=== PATIENT | female | born 1985 | race Asian ===

== ENCOUNTER 2017-02-03 20:26 | Day surgery (SDC) | payer MEDICAID, OTHER ==
[~2017-02-03] VITALS: Ht 152.4 cm; Wt 53.4 kg
--- NOTE | 2017-02-03 22:49 | ERD ---
ER Documentation Chief Complaint Date/Time DATE: 02/03/17 TIME: 22:47 Chief Complaint VAG BLEEDING/ABD CRAMPING SINCE 4:30PM 7 WEEKS HPI 31-year-old female presents here in emergency department for complaints of vaginal bleeding started today, describes the bleeding as spotting, complaints of pelvic pain cramping pain, 4/10 scale, accompanying the vaginal spotting. Patient is 1 para 0 0. Approximately 7 weeks . LMP . Patient denies any hematuria or dysuria. Patient denies any flank pain. Patient denies any fever or chills. Patient denies any nausea vomiting. ROS All systems reviewed and are negative except as per history of present illness. Medications Home Meds Reported Medications [none] Unknown Strength No Conflict Check 02/03/17 Allergies Allergies: Coded Allergies: No Known Allergy (Unverified , 02/03/17) PMhx/Soc Medical and Surgical Hx: pt denies Medical Hx, pt denies Surgical Hx Hx Alcohol Use: No Hx Substance Use: No Hx Tobacco Use: No Smoking Status: Never smoker FmHx Family History: No coronary disease, No diabetes, No other Physical Exam Vitals Vital Signs Date Time Temp Pulse Resp B/P Pulse Ox O2 Delivery O2 Flow Rate FiO2 02/04/17 01:11 71 28 129/93 100 Room Air 02/03/17 21:09 98.6 71 20 132/78 99 Physical Exam GENERAL: The patient is well developed and appropriate for usual state of health, in no apparent distress. CHEST: Clear to auscultation bilaterally. There are no rales, wheezes or rhonchi. HEART: Regular rate and rhythm. No murmurs, clicks, rubs or gallops. No S3 or S4. ABDOMEN: Soft, nontender and nondistended. Good bowel sounds. No rebound or guarding. No gross peritonitis. No gross organomegaly or masses. No Maldonado sign or McBurney point tenderness. BACK: No midline or flank tenderness. EXTREMITIES: Equal pulses bilaterally. There is no peripheral clubbing, cyanosis or edema. No focal swelling or erythema. Full range of motion. Grossly neurovascularly intact. NEURO: Alert and oriented. Cranial nerves 2-12 intact. Motor strength in all 4 extremities with 5/5 strength. Sensation grossly intact. Normal speech and gait. SKIN: There is no apparent rash or petechia. The skin is warm and dry. HEMATOLOGIC AND LYMPHATIC: There is no evidence of excessive bruising or lymphedema. No gross cervical, axillary, or inguinal lymphadenopathy. Vaginal: Small amount of blood in the vaginal vault, cervical os closed. No cervical motion tenderness or adnexal tenderness noted. Result Diagram: 02/03/17 1020 Results 24 hrs Laboratory Tests Test 02/03/17 23:20 02/03/17 23:27 Urine Color LT. YELLOW Urine Clarity CLEAR Urine pH 5.5 Urine Specific [place] 1.015 Urine Ketones NEGATIVE Urine Nitrite NEGATIVE Urine Bilirubin NEGATIVE Urine Urobilinogen 0.2 E.U./dL Urine Leukocyte Esterase TRACE Urine Microscopic RBC 25-50/HPF Urine Microscopic WBC 2-5/HPF Urine Squamous Epithelial Cells FEW Urine Bacteria FEW Urine Hemoglobin 3+ Urine Glucose NEGATIVE% Urine Total Protein NEGATIVE White Blood Count 11.110^3/ul Red Blood Count 4.0410^6/ul Hemoglobin 12.2g/dl Hematocrit 36.7% Mean Corpuscular Volume 90.8fl Mean Corpuscular Hemoglobin 30.2pg Mean Corpuscular Hemoglobin Concent 33.2g/dl Red Cell Distribution Width 12.3% Platelet Count 97644^3/UL Mean Platelet Volume 9.8fl Neutrophils % 74.8% Lymphocytes % 18.9% Monocytes % 4.6% Eosinophils % 0.8% Basophils % 0.5% Nucleated Red Blood Cells % 0.0/100WBC Neutrophils # 8.310^3/ul Lymphocytes # 2.110^3/ul Monocytes # 0.510^3/ul Eosinophils # 0.110^3/ul Basophils # 0.110^3/ul Nucleated Red Blood Cells # 0.010^3/ul Beta HCG, Quantitative 2025.8mIU/ml Current Medications Medications (Trade) Dose Ordered Sig/Cathleen Route PRN Reason Start Time Stop Time Status Last Admin Dose Admin Ketorolac Tromethamine 30 mg 30 mg ONCE STAT IV 02/04/17 00:37 02/04/17 00:58 DC 02/04/17 01:02 Sodium Chloride (NS) 1,000 ml @ 1,000 mls/hr Q1H ONCE IV 02/04/17 01:00 02/04/17 01:59 DC 02/04/17 01:03 Ondansetron HCl (Zofran Inj) 4 mg ONCE STAT IV 02/04/17 01:10 02/04/17 01:11 DC Ondansetron HCl (Zofran Inj) 4 mg Q6 PRN IV NAUSEA AND/OR VOMITING 02/04/17 03:00 Morphine Sulfate (morphine) 2 mg Q4 PRN IV PAIN LEVEL 7-10 02/04/17 03:00 PROCEDURE: US OB Pelvis. CLINICAL INDICATION: Pain, vaginal bleeding, . TECHNIQUE: Multiple sonographic images of the pelvis were obtained utilizing a transabdominal and endovaginal technique. The images were reviewed on a PACS workstation. COMPARISON: None. FINDINGS: The uterus is visualized and measures 8.5 x 4.2 x 5.2 cm. The endometrial echo complex is normal and measures 13 mm. No intrauterine is identified. The right ovary has a normal echotexture and measures 2.7 x 1.5 x 2.1 cm. Blood flow is demonstrated to the right ovary. The left ovary is not visualized. No adnexal masses are noted. There is a small volume of free pelvic fluid. IMPRESSION: 1. No evidence of intrauterine . If there is clinical concern for ectopic , close follow-up with serial Beta HCG and possible repeat pelvic ultrasound is recommended. 2. Normal appearance of the right ovary. The left ovary is not visualized. 3. Small volume free pelvic fluid, nonspecific. RPTAT: HTAR .Robert Taylor MD, Date Time Electronically viewed and signed by .Robert Taylor MD, on 02/04/2017 00:00 .R/ CC: VELMA ALMAGUER NP Upon reevaluation of patient at 45, patient complaining of severe pelvic pain , 8/10 scale, accompanied with worsening vaginal bleeding, I spoke with OB laborist, Dr Cabrera, will come down and evaluate patient, presented patient's results, JAMIN, doesnt show IUP, left ovary not visualized, beta HCG at 2024. She recommended to medicate patient with Toradol 30 mg IV. Procedures/MDM Medical Decision Making: Patients vaginal bleeding is most likely consistent of possible threatened . Patient does not show any evidence of hypovolemic shock. Patients hemoglobin and hematocrit is stable. Since patient' s left ovary is not visualized and patient is an pain, patient will be observed in the hospital, will be admitted under the labor rest, I spoke with OB Laborist , Dr. Brar, with admitted the patient for observation. Patient is stable at this time. Departure Diagnosis: Primary Impression: Vaginal bleeding Additional Impression: Pelvic pain Condition: Fair VELMA ALMAGUER NP February 03, 2017 22:48
[2017-02-03 23:32] LABS: ADD UMIC YES; URINE BILIRUBIN (Dip) NEGATIVE (NEGATIVE); URINE BLOOD (Dip) 3+ (NEGATIVE); URINE COLOR LT. YELLOW (YELLOW); URINE GLUCOSE (Dip) NEGATIVE (NEGATIVE); URINE KETONES (Dip) NEGATIVE (NEGATIVE); URINE LEUKOCYTE ESTERASE (Dip) TRACE (NEGATIVE); URINE NITRITE (Dip) NEGATIVE (NEGATIVE); URINE TOTAL PROTEIN (Dip) NEGATIVE (NEGATIVE); URINE UROBILINOGEN (Dip) 0.2 E.U./dL (0.1-1.0)
[2017-02-03 23:50] LABS: ADD SCAN DIFF NO
[2017-02-03 23:51] LABS: BASOPHIL # 0.1 10^3/ul (0.0-0.1); BASOPHILS % 0.5 % (0.0-2.0); EOSINOPHILS # 0.1 10^3/ul (0.0-0.5); EOSINOPHILS % 0.8 % (0.0-7.0); HEMATOCRIT 36.7 % (37.0-47.0); HEMOGLOBIN 12.2 g/dl (12.0-16.0); LYMPHOCYTES # 2.1 10^3/ul (0.8-2.9); LYMPHOCYTES % 18.9 % (15.0-51.0); MEAN CORPUSCULAR HEMOGLOBIN 30.2 pg (29.0-33.0); MEAN CORPUSCULAR HGB CONC 33.2 g/dl (32.0-37.0); MEAN CORPUSCULAR VOLUME 90.8 fl (82.0-101.0); MEAN PLATELET VOLUME 9.8 fl (7.4-10.4); MONOCYTE # 0.5 10^3/ul (0.3-0.9); MONOCYTES % 4.6 % (0.0-11.0); NEUTROPHIL # 8.3 10^3/ul (1.6-7.5); NEUTROPHILS % 74.8 % (39.0-77.0); PLATELET COUNT 347 10^3/UL (140-415); RED BLOOD COUNT 4.04 10^6/ul (4.20-5.40); RED CELL DISTRIBUTION WIDTH 12.3 % (11.5-14.5); WHITE BLOOD COUNT 11.1 10^3/ul (4.8-10.8)
[2017-02-03 23:53] LABS: BACTERIA,URINE FEW; SQUAMOUS EPITHELIAL CELL,UR FEW; URINE RBCS 25-50 /HPF (0)
[2017-02-04] VITALS (16 sets, daily range): BP systolic 120–140; BP diastolic 66–87; PULSE 68–80; RESP 16–22; TEMP 98.2; Ht 152.4 cm; Wt 53.4 kg
--- NOTE | 2017-02-04 | RADRPT ---
PROCEDURE: US OB Pelvis. CLINICAL INDICATION: Pain, vaginal bleeding, . TECHNIQUE: Multiple sonographic images of the pelvis were obtained utilizing a transabdominal and endovaginal technique. The images were reviewed on a PACS workstation. COMPARISON: None. FINDINGS: The uterus is visualized and measures 8.5 x 4.2 x 5.2 cm. The endometrial echo complex is normal and measures 13 mm. No intrauterine is identified. The right ovary has a normal echotexture and measures 2.7 x 1.5 x 2.1 cm. Blood flow is demonstrated to the right ovary. The left ovary is not visualized. No adnexal masses are noted. There is a smal l volume of free pelvic fluid. IMPRESSION: 1. No evidence of intrauterine . If there is clinical concern for ectopic , close follow-up with serial Beta HCG and possible repeat pelvic ultrasound is recommended. 2. Normal appearance of the right ovary. The left ovary is not visualized. 3. Small volume free pelvic fluid, nonspecific. RPTAT: HTAR .Robert Taylor MD, Date Time Electronically viewed and signed by .Robert Taylor MD, on 02/04/2017 00:00 .R/
[2017-02-04] MEDS ORDERED: KETOROLAC 30 MG INJ IV STA (00:37)
[2017-02-04] MEDS ORDERED: SOD CHLORIDE 0.9% 1,000 ML IV ONE (01:00)
[2017-02-04] MEDS ORDERED: ONDANSETRON 4 MG INJ IV STA (01:10)
--- NOTE | 2017-02-04 02:36 | HP ---
Date/Time of Note Date/Time of Note DATE: 02/04/17 TIME: 02:23 Assessment/Plan VTE Prophylaxis VTE Prophylaxis Intervention: ambulation Lines/Catheters IV [facility] Peripheral IV Urinary Cath still in place: No Assessment/Plan Chief Complaint/Hosp Course at 7 weeks by dates. Bleeding. Unclear if non-viable early IUP vs possible ectopic. Problems: Assessment/Plan Will admit to observation. Notify Dr Plunkett in the AM that he has a patient here. Will repeat the US and [facility] in the AM. HPI/ROS Admit Date/Time Admit Date/Time February 04, 2017 Hx of Present Illness 31 y.o. G1 with an LMP of 3 and is at 7w 1d by dates came in as was having spotting. Pt went to Dr Plunkett's clinic 01/20 where an US was done but no IUP was seen (she was only 5 weeks by dates at that time) and labwork was done. She had the blood drawn in the clinic, not at a lab. She has only experienced cramping and nipple changes, but no nausea or vomiting. PMH/Family/Social Past Medical History Medical History: no pertinent history Past Surgical History Past Surgical Hx: no surgical history Family History Significant Family History: no pertinent family hx Social History Alcohol Use: none Smoking Status: Never smoker Drug Use: none Exam/Review of Systems Vital Signs Vitals Vital Signs Date Time Temp Pulse Resp B/P Pulse Ox O2 Delivery O2 Flow Rate FiO2 02/04/17 01:11 71 28 129/93 100 Room Air 02/03/17 21:09 98.6 Exam Exam BP 112/73 Afebrile. Abdomen is soft with initial pain on exam in the right upper quadrant but then seemed to be more at midline in the pelvic region. Pain with pressure only, no rebound. Pelvic: small amount of dark red blood in the vault. No clots. Os is closed. US: empty uterus. Right ovary normal. Left ovary not seen. Small amount of free fluid. No adnexal masses. Hgb 12.2 [facility] [place] Constitutional: alert, oriented, well developed Psych: no complaints Respiratory: clear to auscultation Cardiovascular: regular rate and rhythm Gastrointestinal: soft, tender Genitourinary - Female: nl external genitalia Labs Result Diagram: 02/03/17 0104 CAMMY LOZOYA MD February 04, 2017 02:36
[2017-02-04] MEDS ORDERED: morphine 2 MG INJ IV PRN (03:00)
[2017-02-04] MEDS ORDERED: ONDANSETRON 4 MG INJ IV PRN ×2 (03:00→21:30)
[2017-02-04] MEDS ORDERED: PNV11TAB PO (04:21)
--- NOTE | 2017-02-04 08:26 | QN ---
Documentation Comment B-HCG 2200 No IUP Lower Abd Tenderness No Rebound VS Stable OH 64 BP 110/60 Hb 12.4 --->Diagnostic laparoscopy and D&C&suction for R/o Ectopic discussed with patient ,all questions answered Patient declines procedure.CBC B-HCG and Pelvic Ultrasonography ordered Patient would like to be observed and no invasive procedure to be done at this time Attending of the case informed and he will follow up on this case ER charged Nurse informed and he will have her nurse to sign AMA with her CADENCE CHAMORRO M.D. February 04, 2017 08:26
[2017-02-04 09:54] LABS: ADD SCAN DIFF NO
--- NOTE | 2017-02-04 09:57 | RADRPT ---
PROCEDURE: US Pelvis. CLINICAL INDICATION: vaginal bleeding TECHNIQUE: Multiple sonographic images of the pelvis were obtained utilizing a transabdominal and endovaginal technique. The images were reviewed on a PACS workstation. COMPARISON: 02/03/2017 FINDINGS: The uterus is normal in size and demonstrates a normal appearance of the myometrium. The endometria l stripe is heterogeneous in appearance and has the thickness of 15 mm. No intrauterine gestation is noted. The ovaries are normal in size and echogenicity. Normal Doppler flow is identified in both ovaries. The right ovary measures 2.8 x 1.3 x 1.7 cm. The left ovary measures 1-0.6 x 1.2 x 2.0 cm. There is a 1.8 x 1.5 cm echogenic mass adjacent to the left ovary. There is a small 5 mm cystic comp onent within this mass. There is a small to moderate amount of free fluid in the left adnexa and cul-de-sac. RPTAT: AA IMPRESSION: No intrauterine gestation visualized. 1.8 cm echogenic mass adjacent to the left ovary, suspicious for an ectopic . A call report was made and the findings discussed with Eder Kennedy at 02/04/2017 9:56:02 AM. .David Kim MD, MD Date Time Electronically viewed and signed by .David Kim MD, MD on 02/04/2017 09:57 .S/
[2017-02-04 10:06] LABS: BASOPHIL # 0.1 10^3/ul (0.0-0.1); BASOPHILS % 0.5 % (0.0-2.0); EOSINOPHILS # 0.1 10^3/ul (0.0-0.5); EOSINOPHILS % 0.7 % (0.0-7.0); HEMATOCRIT 32.6 % (37.0-47.0); LYMPHOCYTES # 1.8 10^3/ul (0.8-2.9); LYMPHOCYTES % 17.7 % (15.0-51.0); MEAN CORPUSCULAR HEMOGLOBIN 30.6 pg (29.0-33.0); MEAN CORPUSCULAR HGB CONC 33.7 g/dl (32.0-37.0); MEAN CORPUSCULAR VOLUME 90.8 fl (82.0-101.0); MEAN PLATELET VOLUME 9.8 fl (7.4-10.4); MONOCYTE # 0.6 10^3/ul (0.3-0.9); MONOCYTES % 6.1 % (0.0-11.0); NEUTROPHIL # 7.7 10^3/ul (1.6-7.5); NEUTROPHILS % 74.7 % (39.0-77.0); PLATELET COUNT 303 10^3/UL (140-415); RED BLOOD COUNT 3.59 10^6/ul (4.20-5.40); RED CELL DISTRIBUTION WIDTH 12.2 % (11.5-14.5); WHITE BLOOD COUNT 10.3 10^3/ul (4.8-10.8)
--- NOTE | 2017-02-04 10:34 | QN ---
Documentation Comment The New Information including the Ultrasound results discussed with patient in details.Possible Diagnosis of ruptured ectopic is discussed with patient. She declines the laparoscopy and even the Methotrexate. The case discussed with Dr. Evans as well Dr.Joseph Beverly ,Attending of case informed and he will take care of the patient. CADENCE CHAMORRO M.D. February 04, 2017 10:34
--- NOTE | 2017-02-04 10:35 | QN ---
Documentation Comment Observation Note: Time: 4 hours Family Hx: Negative for diabetes Evaluation: Multiple exams showed improving symptoms and no evidence of clinical decompensation. The patient had a repeat ultrasound which showed ectopic . I spoke with Dr. Celaya who has come to the bedside to see the patient. The patient likely require surgery as he thinks this is a ruptured ectopic . However the patient is adamantly refusing surgery at this point. She has been explained the risks of not having surgery and she understands but she is still refusing surgery. The patient is still admitted to the care of Dr. Plunkett who is her primary OB. ALANA PEREZ MD February 04, 2017 10:35
--- NOTE | 2017-02-04 14:50 | PREOPHP ---
DATE OF ADMISSION: 02/03/2017 A 31-year-old primigravida patient with LMP of 6 weeks, presents with lower abdominal pain which started yesterday. She had some bleeding yesterday. She presents to the Emergency Room with pain intensifying. On ultrasound, they see an ovarian mass, nothing inside the uterus. Her hemoglobin is at 11 and her beta hCG is at 2000. There are no other problems. PAST MEDICAL HISTORY: Unremarkable. PAST SURGICAL HISTORY: Unremarkable. ____primigravida. GYNECOLOGIC HISTORY: regular cylces, MEDICATIONS: vitamins. ALLERGIES: NO KNOWN DRUG ALLERGIES. PHYSICAL EXAMINATION: VITAL SIGNS: Upon admission, vital signs were stable. LUNGS: Clear. ABDOMEN: positive for guarding and rebound. PELVIC: deferred. ASSESSMENT: Ruptured Ectopic , for laparoscopy. Dictated By: CUCO FRANKS/ARIC Conf#: [id number] DID#: [id number] MTDD
[2017-02-04] MEDS ORDERED: METOCLOPRAMIDE 10 MG INJ ONE (19:44)
[2017-02-04] MEDS ORDERED: MIDAZOLAM 1 MG/ML 2 ML INJ ONE (19:44)
[2017-02-04] MEDS ORDERED: PROPOFOL 20 ML ONE (19:44)
[2017-02-04] MEDS ORDERED: ROCURONIUM 50 MG INJ ONE ×2 (19:44→21:05)
[2017-02-04] MEDS ORDERED: BUPIVACAINE 0.25%/EPI (SDV) 30 ML INJ ONE (19:49)
[2017-02-04] MEDS ORDERED: CEFAZOLIN 1 GM INJ ONE (20:05)
[2017-02-04] MEDS ORDERED: NEOSTIGMINE 3 MG/3 ML SYRINGE ONE (20:40)
[2017-02-04] MEDS ORDERED: GLYCOPYRROLATE 0.4 MG INJ ONE (20:40)
[2017-02-04] MEDS ORDERED: HYDROmorphONE 2 MG/ML SYG ONE (20:40)
[2017-02-04] MEDS ORDERED: ROPIVACAINE 0.5 % 30 ML VIAL ONE (21:28)
[2017-02-04] MEDS ORDERED: MEPERIDINE 25 MG INJ IV PRN (21:30)
[2017-02-04] MEDS ORDERED: METOCLOPRAMIDE 10 MG INJ IV PRN (21:30)
[2017-02-04] MEDS ORDERED: DIPHENHYDRAMINE 50 MG INJ IV PRN (21:30)
[2017-02-04] MEDS ORDERED: HYDROmorphONE (0.2 MG/ML) 10ML SYG IV PRN ×3 (21:30)
[2017-02-04] MEDS ORDERED: KETOROLAC 30 MG INJ ONE (21:31)
[2017-02-04 22:30] LABS: ADD SCAN DIFF NO
[2017-02-04 22:33] LABS: BASOPHIL # 0.1 10^3/ul (0.0-0.1); BASOPHILS % 0.4 % (0.0-2.0); EOSINOPHILS % 0.3 % (0.0-7.0); HEMATOCRIT 34.6 % (37.0-47.0); HEMOGLOBIN 11.5 g/dl (12.0-16.0); LYMPHOCYTES # 1.7 10^3/ul (0.8-2.9); LYMPHOCYTES % 11.7 % (15.0-51.0); MEAN CORPUSCULAR HEMOGLOBIN 30.1 pg (29.0-33.0); MEAN CORPUSCULAR HGB CONC 33.2 g/dl (32.0-37.0); MEAN CORPUSCULAR VOLUME 90.6 fl (82.0-101.0); MEAN PLATELET VOLUME 9.3 fl (7.4-10.4); MONOCYTE # 0.8 10^3/ul (0.3-0.9); MONOCYTES % 5.2 % (0.0-11.0); NEUTROPHIL # 12.1 10^3/ul (1.6-7.5); NEUTROPHILS % 81.9 % (39.0-77.0); PLATELET COUNT 328 10^3/UL (140-415); RED BLOOD COUNT 3.82 10^6/ul (4.20-5.40); RED CELL DISTRIBUTION WIDTH 12.2 % (11.5-14.5); WHITE BLOOD COUNT 14.7 10^3/ul (4.8-10.8)
[2017-02-04 22:35] LABS: ADD UMIC NO; URINE BILIRUBIN (Dip) NEGATIVE (NEGATIVE); URINE BLOOD (Dip) NEGATIVE (NEGATIVE); URINE COLOR LT. YELLOW (YELLOW); URINE GLUCOSE (Dip) NEGATIVE (NEGATIVE); URINE KETONES (Dip) NEGATIVE (NEGATIVE); URINE LEUKOCYTE ESTERASE (Dip) NEGATIVE (NEGATIVE); URINE NITRITE (Dip) NEGATIVE (NEGATIVE); URINE TOTAL PROTEIN (Dip) NEGATIVE (NEGATIVE); URINE UROBILINOGEN (Dip) 0.2 E.U./dL (0.1-1.0)
[2017-02-05] VITALS: BP 132/70; PULSE 79; RESP 20
[2017-02-05 00:30] VITALS: BP 134/78; PULSE 80; RESP 18
[2017-02-05 01:00] VITALS: BP 129/77; PULSE 76; RESP 18
[2017-02-05] MEDS: DEXTROSE 5%-LR 1,000 ML IV SCH ×5 (02:11→22:30)
[2017-02-05 05:43] LABS: ADD SCAN DIFF NO
[2017-02-05 06:22] LABS: BASOPHILS % 0.3 % (0.0-2.0); EOSINOPHILS % 0.2 % (0.0-7.0); HEMATOCRIT 29.5 % (37.0-47.0); HEMOGLOBIN 9.9 g/dl (12.0-16.0); LYMPHOCYTES # 1.2 10^3/ul (0.8-2.9); LYMPHOCYTES % 9.6 % (15.0-51.0); MEAN CORPUSCULAR HEMOGLOBIN 30.5 pg (29.0-33.0); MEAN CORPUSCULAR HGB CONC 33.6 g/dl (32.0-37.0); MEAN CORPUSCULAR VOLUME 90.8 fl (82.0-101.0); MEAN PLATELET VOLUME 10.2 fl (7.4-10.4); MONOCYTE # 0.6 10^3/ul (0.3-0.9); MONOCYTES % 5.3 % (0.0-11.0); NEUTROPHIL # 10.1 10^3/ul (1.6-7.5); NEUTROPHILS % 84.1 % (39.0-77.0); PLATELET COUNT 265 10^3/UL (140-415); RED BLOOD COUNT 3.25 10^6/ul (4.20-5.40); RED CELL DISTRIBUTION WIDTH 12.3 % (11.5-14.5)
[2017-02-05 07:51] VITALS: BP 102/60; RESP 18
--- NOTE | 2017-02-05 18:31 | PN ---
Date/Time of Note Date/Time of Note DATE: 02/05/17 TIME: 18:26 OB Subjective Subjective Subjective Patient tolerated diet well. Had some nausea last night that resolved. Has not passed flatus yet. Has not been ambulating yet. Patient denies any dizziness, lightheadedness, no fever no chills no shortness of breath OB Objective Objective Objective Abdomen: Tenderness in the lower abdomen around the umbilicus in the right and left side, moderate rigidity and moderate generalized tenderness over the lower part of the abdomen. No rebound tenderness, slight guarding Incision: Clean dry and intact in both laparoscopic incision as well as mini laparotomy incision in suprapubic area Extremities: No calf tenderness no click no edema Hematology Test 02/04/17 22:20 02/05/17 05:15 Hematocrit 34.6% (37.0-47.0) L 29.5% (37.0-47.0) L Hemoglobin 11.5g/dl (12.0-16.0) L 9.9g/dl (12.0-16.0) L Mean Corpuscular Hemoglobin 30.1pg (29.0-33.0) 30.5pg (29.0-33.0) Mean Corpuscular Hemoglobin Concent 33.2g/dl (32.0-37.0) 33.6g/dl (32.0-37.0) Mean Corpuscular Volume 90.6fl (82.0-101.0) 90.8fl (82.0-101.0) Mean Platelet Volume 9.3fl (7.4-10.4) 10.2fl (7.4-10.4) Platelet Count 52252^3/UL (140-415) 41976^3/UL (140-415) Red Blood Count 3.8210^6/ul (4.20-5.40) L 3.2510^6/ul (4.20-5.40) L Red Cell Distribution Width 12.2% (11.5-14.5) 12.3% (11.5-14.5) White Blood Count 14.710^3/ul (4.8-10.8) #H 12.010^3/ul (4.8-10.8) H Chemistry Test 02/04/17 22:20 02/05/17 05:15 Serum HCG, Qualitative POSITIVE (NEGATIVE) POSITIVE (NEGATIVE) Hematology - 72 Hrs Test 02/03/17 23:27 02/04/17 09:50 02/04/17 22:20 02/05/17 05:15 White Blood Count 11.110^3/ul (4.8-10.8) H 10.310^3/ul (4.8-10.8) 14.710^3/ul (4.8-10.8) #H 12.010^3/ul (4.8-10.8) H Red Blood Count 4.0410^6/ul (4.20-5.40) L 3.5910^6/ul (4.20-5.40) L 3.8210^6/ul (4.20-5.40) L 3.2510^6/ul (4.20-5.40) L Hemoglobin 12.2g/dl (12.0-16.0) 11.0g/dl (12.0-16.0) L 11.5g/dl (12.0-16.0) L 9.9g/dl (12.0-16.0) L Hematocrit 36.7% (37.0-47.0) L 32.6% (37.0-47.0) L 34.6% (37.0-47.0) L 29.5% (37.0-47.0) L Mean Corpuscular Volume 90.8fl (82.0-101.0) 90.8fl (82.0-101.0) 90.6fl (82.0-101.0) 90.8fl (82.0-101.0) Mean Corpuscular Hemoglobin 30.2pg (29.0-33.0) 30.6pg (29.0-33.0) 30.1pg (29.0-33.0) 30.5pg (29.0-33.0) Mean Corpuscular Hemoglobin Concent 33.2g/dl (32.0-37.0) 33.7g/dl (32.0-37.0) 33.2g/dl (32.0-37.0) 33.6g/dl (32.0-37.0) Red Cell Distribution Width 12.3% (11.5-14.5) 12.2% (11.5-14.5) 12.2% (11.5-14.5) 12.3% (11.5-14.5) Platelet Count 46216^3/UL (140-415) 36553^3/UL (140-415) 89061^3/UL (140-415) 84755^3/UL (140-415) Mean Platelet Volume 9.8fl (7.4-10.4) 9.8fl (7.4-10.4) 9.3fl (7.4-10.4) 10.2fl (7.4-10.4) Neutrophils % 74.8% (39.0-77.0) 74.7% (39.0-77.0) 81.9% (39.0-77.0) H 84.1% (39.0-77.0) H Lymphocytes % 18.9% (15.0-51.0) 17.7% (15.0-51.0) 11.7% (15.0-51.0) L 9.6% (15.0-51.0) L Monocytes % 4.6% (0.0-11.0) 6.1% (0.0-11.0) 5.2% (0.0-11.0) 5.3% (0.0-11.0) Eosinophils % 0.8% (0.0-7.0) 0.7% (0.0-7.0) 0.3% (0.0-7.0) 0.2% (0.0-7.0) Basophils % 0.5% (0.0-2.0) 0.5% (0.0-2.0) 0.4% (0.0-2.0) 0.3% (0.0-2.0) Nucleated Red Blood Cells % 0.0/100WBC (0.0-0.0) 0.0/100WBC (0.0-0.0) 0.0/100WBC (0.0-0.0) 0.0/100WBC (0.0-0.0) Neutrophils # 8.310^3/ul (1.6-7.5) H 7.710^3/ul (1.6-7.5) H 12.110^3/ul (1.6-7.5) H 10.110^3/ul (1.6-7.5) H Lymphocytes # 2.110^3/ul (0.8-2.9) 1.810^3/ul (0.8-2.9) 1.710^3/ul (0.8-2.9) 1.210^3/ul (0.8-2.9) Monocytes # 0.510^3/ul (0.3-0.9) 0.610^3/ul (0.3-0.9) 0.810^3/ul (0.3-0.9) 0.610^3/ul (0.3-0.9) Eosinophils # 0.110^3/ul (0.0-0.5) 0.110^3/ul (0.0-0.5) 0.010^3/ul (0.0-0.5) 0.010^3/ul (0.0-0.5) Basophils # 0.110^3/ul (0.0-0.1) 0.110^3/ul (0.0-0.1) 0.110^3/ul (0.0-0.1) 0.010^3/ul (0.0-0.1) Nucleated Red Blood Cells # 0.010^3/ul (0.0-0.0) 0.010^3/ul (0.0-0.0) 0.010^3/ul (0.0-0.0) 0.010^3/ul (0.0-0.0) Chemistry Test 02/03/17 23:27 02/04/17 09:50 02/04/17 22:20 02/05/17 05:15 Beta HCG, Quantitative 2025.8mIU/ml 1960.3mIU/ml Serum HCG, Qualitative POSITIVE (NEGATIVE) POSITIVE (NEGATIVE) OB Assessment/Plan Other Assessment: Status post laparoscopy with an mini laparotomy incision in the lower abdomen for ectopic with unilateral salpingectomy, per report Abdomen with moderate generalized tenderness and rigidity No clear evidence of acute abdomen Patient is hemodynamically stable, althought there was an drop in HB prior to surgery. Consider repeating HCG 24 hours after the first draw prior to surgery, to ensure appropriate drop CBC repeat at the time of next HCG. Patient has enough UOP and vitals are stable , not tachycardic/ We will continue to monitor closely Patient had been afebrile. Will follow up with HCG and CBC FERMIN NGUYEN MD February 05, 2017 18:31
[2017-02-05 19:33] LABS: HEMOGLOBIN 10.3 g/dl (12.0-16.0)
--- NOTE | 2017-02-05 19:49 | RADRPT ---
PROCEDURE: US Lower extremity Venous. CLINICAL INDICATION: R/O DVT TECHNIQUE: Multiple sonographic images of the right lower extremity deep venous system was obtaine d utilizing grayscale, color-flow, compressive sonography and doppler imaging with augmentation. Th e images were reviewed on a PACS workstation. COMPARISON: None FINDINGS: There is normal compressibility and flow within the right common femoral, deep femoral, superficial femoral and popliteal veins. The deep veins the calf were incompletely visualized. IMPRESSION: No sonographic evidence for deep venous thrombosis in the right lower extremity. Physician Micha Date Time Electronically viewed and signed by Physician Micha on 02/05/2017 19:49 ML/
[2017-02-05 19:52] LABS: CALCIUM 8.8 mg/dl (8.4-10.2); CREATININE 0.66 mg/dl (0.44-1.00); POTASSIUM 3.6 mmol/L (3.5-5.1)
[2017-02-05 20:31] VITALS: BP 140/63; RESP 18
--- NOTE | 2017-02-05 22:41 | QN ---
Documentation Comment late entry note I was called to evaluate this patient due to right leg pain on and off today. Patient reports pain in the mid lower posterior part of her calf. Pain is crampy like and happens on and off. She denies any other symptom. She denies any trouble ambulation. She has been currently up out of the bed and walking. Denies any dizziness, lightheadedness, Patient tolerated regular diet. Extremities: No edema. There is mild tenderness in the posterior part of the right lower leg. No cords palpable. Pulses are normal. Negative Homans sign. Abdomen: Moderate generalized tenderness in the lower abdomen still present. Appropriate tenderness over the incision of the laparotomy as well as laparoscopic incision with no evidence of erythema or drainage or hematoma. Assessment: Right leg pain likely cramp, ought for DVT is very minimal however Doppler of right lower extremity ordered due to patient's risk factor including recent episode of as well as post surgery Symptoms could also be related to positioning during procedure. There is no evidence of motor neuropathy Abdominal tenderness, postop Patient hemodynamically stable Recent hemoglobin hematocrit, stable Repeat CBC as well as hCG 24 hours after last HCG requested to confirm approrpiate drop Routine postop care FERMIN NGUYEN MD February 05, 2017 22:41
[2017-02-05 23:33] LABS: ADD SCAN DIFF NO
[2017-02-05 23:35] LABS: BASOPHILS % 0.6 % (0.0-2.0); EOSINOPHILS # 0.1 10^3/ul (0.0-0.5); EOSINOPHILS % 1.5 % (0.0-7.0); HEMATOCRIT 27.9 % (37.0-47.0); HEMOGLOBIN 9.5 g/dl (12.0-16.0); LYMPHOCYTES # 2.3 10^3/ul (0.8-2.9); LYMPHOCYTES % 31.6 % (15.0-51.0); MEAN CORPUSCULAR HEMOGLOBIN 31.3 pg (29.0-33.0); MEAN CORPUSCULAR HGB CONC 34.1 g/dl (32.0-37.0); MEAN CORPUSCULAR VOLUME 91.8 fl (82.0-101.0); MEAN PLATELET VOLUME 9.3 fl (7.4-10.4); MONOCYTE # 0.6 10^3/ul (0.3-0.9); MONOCYTES % 7.6 % (0.0-11.0); NEUTROPHIL # 4.3 10^3/ul (1.6-7.5); NEUTROPHILS % 58.4 % (39.0-77.0); PLATELET COUNT 229 10^3/UL (140-415); RED BLOOD COUNT 3.04 10^6/ul (4.20-5.40); RED CELL DISTRIBUTION WIDTH 12.4 % (11.5-14.5); WHITE BLOOD COUNT 7.3 10^3/ul (4.8-10.8)
[2017-02-06] MEDS: DEXTROSE 5%-LR 1,000 ML IV SCH ×3 (04:13→13:24)
--- NOTE | 2017-02-06 05:37 | OPR ---
DATE OF OPERATION: PREOPERATIVE DIAGNOSIS: Ruptured ectopic . POSTOPERATIVE DIAGNOSIS: Ruptured ectopic . OPERATION PERFORMED: Laparoscopic left salpingectomy. SURGEON: Dolores Plunkett MD LANDSCAPE ARCHITECT AND PLANNER: Adriana Fallon MD TYPE OF ANESTHESIA: Spinal. BLOOD LOSS: 700 mL. DESCRIPTION OF PROCEDURE: The patient was under general anesthesia, prepped and draped in dorsal li thotomy position. A heavy weighted speculum was placed inside, the Schwartz was in place, anterior lip of cervix was grabbed with a single tooth tenaculum and HUMI was placed inside. At that time, atte ntion was brought to the upper abdomen and the umbilical region. Scalpel was used to make an incisi on for a Veress needle and the pneumoperitoneum was created after introduction of the Veress needle. The Veress needle was removed and a 5 mm trocar was placed and a camera was used to evaluate the a bdomen and showed approximately 300 mL of blood clots from the ruptured left ectopic. At that time a second trocar site was placed suprapubically and the ____ instrument was used to grab the left tub e in the midsection, cauterize and cut, and hemostasis reassured. This specimen was removed and sen t to pathology. All the gas was let out. The fascia was closed with 1 Vicryl suture, and the skin was closed with 3-0 Monocryl. The patient was sent in stable condition to the recovery room. Dictated By: DOLORES FRANKS/ARIC Conf#: [id number] DID#: [id number]
[2017-02-06 08:07] VITALS: BP 137/79; RESP 18
--- NOTE | 2017-02-06 17:10 | DS ---
Date/Time of Note Date/Time of Note DATE: 02/06/17 TIME: 17:06 Discharge Summary Admission/Discharge Info Admit Date/Time February 06, 2017 Hospital visit and discharge Discharge Date/Time 31 y.o. G1 with an LMP of 12/16 and is at 7w 1d by dates came in as was having spotting. Pt went to Dr Plunkett's clinic 01/20 where an US was done but no IUP was seen . By clinical evaluation , ultrasound study and lab work a diagnosis of ectopic was entertained Patient subsequently was underwent a laparoscopic surgery during which about 300 cc of blood was evacuated from the peritoneal cavity. The ectopic was noted on the left salpinx and left salpingectomy with removal of ectopic was performed without much complication. Today which is the second day of her surgery she is afebrile fairly comfortable abdomen is soft chest is clear Incision sites are clear And patient will be discharged home on analgesic medication She is advised to rest at home and to make call the clinic to be seen in 2 weeks for follow-up Return to the clinic or the hospital if severe pain or any other major problem. End of dictation thank you Final Diagnosis Left ruptured tubal ectopic Patient Condition: Good Procedures Laboratory Tests Test 02/05/17 19:20 02/05/17 23:25 Hemoglobin 10.3g/dl 9.5g/dl Hematocrit 31.0% 27.9% Sodium Level 139mmol/L Potassium Level 3.6mmol/L Chloride Level 106mmol/L Carbon Dioxide Level 30mmol/L Anion Gap 7 Blood Urea Nitrogen 15mg/dl Creatinine 0.66mg/dl Glucose Level 98mg/dl Calcium Level 8.8mg/dl White Blood Count 7.310^3/ul Red Blood Count 3.0410^6/ul Mean Corpuscular Volume 91.8fl Mean Corpuscular Hemoglobin 31.3pg Mean Corpuscular Hemoglobin Concent 34.1g/dl Red Cell Distribution Width 12.4% Platelet Count 22603^3/UL Mean Platelet Volume 9.3fl Neutrophils % 58.4% Lymphocytes % 31.6% Monocytes % 7.6% Eosinophils % 1.5% Basophils % 0.6% Nucleated Red Blood Cells % 0.0/100WBC Neutrophils # 4.310^3/ul Lymphocytes # 2.310^3/ul Monocytes # 0.610^3/ul Eosinophils # 0.110^3/ul Basophils # 0.010^3/ul Nucleated Red Blood Cells # 0.010^3/ul Beta HCG, Quantitative 453.1mIU/ml Current Medications Medications (Trade) Dose Ordered Sig/Cathleen Route PRN Reason Start Time Stop Time Status Last Admin Dose Admin Ketorolac Tromethamine 30 mg 30 mg ONCE STAT IV 02/04/17 00:37 02/04/17 00:58 DC 02/04/17 01:02 Sodium Chloride (NS) 1,000 ml @ 1,000 mls/hr Q1H ONCE IV 02/04/17 01:00 02/04/17 01:59 DC 02/04/17 01:03 Ondansetron HCl (Zofran Inj) 4 mg ONCE STAT IV 02/04/17 01:10 02/04/17 01:11 DC Ondansetron HCl (Zofran Inj) 4 mg Q6 PRN IV NAUSEA AND/OR VOMITING 02/04/17 03:00 Morphine Sulfate (morphine) 2 mg Q4 PRN IV PAIN LEVEL 7-10 02/04/17 03:00 Bupivacaine HCl/ Epinephrine Bitart (Marcaine 0.25%/ Epi (Sdv) 30 ml) 30 ml STK-MED ONCE .ROUTE 02/04/17 19:49 02/04/17 19:50 DC 02/04/17 20:47 Hydromorphone HCl (Dilaudid (Rec)) 0.2 mg PACU ORDER PRN IV MILD PAIN LEVEL 1-3 02/04/17 21:30 02/05/17 03:00 DC Hydromorphone HCl (Dilaudid (Rec)) 0.4 mg PACU ORDER PRN IV MODERATE PAIN LEVEL 4-6 02/04/17 21:30 02/05/17 03:00 DC Hydromorphone HCl (Dilaudid (Rec)) 0.6 mg PACU ORDER PRN IV SEVERE PAIN LEVEL 7-10 02/04/17 21:30 02/05/17 03:00 DC Ondansetron HCl (Zofran Inj) 4 mg PACU ORDER PRN IV NAUSEA AND/OR VOMITING 02/04/17 21:30 02/05/17 03:00 DC Metoclopramide HCl (Reglan) 10 mg PACU ORDER PRN IV NAUSEA AND/OR VOMITING 02/04/17 21:30 02/05/17 03:00 DC 02/04/17 22:23 Meperidine HCl (Demerol) 25 mg PACU ORDER PRN IV POST-OP RIGORS 02/04/17 21:30 02/05/17 03:00 DC 02/04/17 22:23 Diphenhydramine HCl 25 mg 25 mg PACU ORDER PRN IV PRURITUS 02/04/17 21:30 02/05/17 03:00 DC 02/04/17 22:45 Dextrose/Lactated Ringer's 1,000 ml @ 125 mls/hr Q8H IV 02/04/17 22:30 02/06/17 13:24 Propofol (Diprivan) 20 ml @ ud STK-MED ONCE .ROUTE 02/04/17 19:44 02/05/17 20:46 DC Rocuronium [place] (Zemuron) 50 mg STK-MED ONCE .ROUTE 02/04/17 19:44 02/05/17 20:46 DC Midazolam HCl (Versed) 2 mg STK-MED ONCE .ROUTE 02/04/17 19:44 02/05/17 20:46 DC Metoclopramide HCl (Reglan) 10 mg STK-MED ONCE .ROUTE 02/04/17 19:44 02/05/17 20:46 DC Cefazolin Sodium (Ancef) 1 gm STK-MED ONCE .ROUTE 02/04/17 20:05 02/05/17 20:47 DC Glycopyrrolate (Robinul) 0.4 mg STK-MED ONCE .ROUTE 02/04/17 20:40 02/05/17 20:47 DC Neostigmine Methylsulfate (Neostigmine) 3 mg STK-MED ONCE .ROUTE 02/04/17 20:40 02/05/17 20:47 DC Hydromorphone HCl (Dilaudid) 2 mg STK-MED ONCE .ROUTE 02/04/17 20:40 02/05/17 20:47 DC Rocuronium [place] (Zemuron) 50 mg STK-MED ONCE .ROUTE 02/04/17 21:05 02/05/17 20:47 DC Ropivacaine (Naropin 0.5%) 30 ml STK-MED ONCE .ROUTE 02/04/17 21:28 02/05/17 20:47 DC Ketorolac Tromethamine (Toradol) 30 mg STK-MED ONCE .ROUTE 02/04/17 21:31 02/05/17 20:47 DC Hx of Present Illness 31 y.o. G1 with an LMP of 12/16 and is at 7w 1d by dates came in as was having spotting. Pt went to Dr Plunkett's clinic 01/20 where an US was done but no IUP was seen (she was only 5 weeks by dates at that time) and lab work was done. She had the blood drawn in the clinic, not at a lab. She has only experienced cramping and nipple changes, but no nausea or vomiting. Hospital Course at 7 weeks by dates. Bleeding. Unclear if non-viable early IUP vs possible ectopic. Home Meds Reported Medications [id number] ( 19) 1 Each Tablet, 1 TAB PO DAILY, TAB 02/04/17 Discontinued Reported Medications [none] Unknown Strength No Conflict Check 02/03/17 Pending Labs Laboratory Tests Test 02/05/17 19:20 02/05/17 23:25 Hemoglobin 10.3g/dl (12.0-16.0) 9.5g/dl (12.0-16.0) Hematocrit 31.0% (37.0-47.0) 27.9% (37.0-47.0) Sodium Level 139mmol/L (135-144) Potassium Level 3.6mmol/L (3.5-5.1) Chloride Level 106mmol/L (97-110) Carbon Dioxide Level 30mmol/L (21-31) Anion Gap 7 (8-16) Blood Urea Nitrogen 15mg/dl (7-20) Creatinine 0.66mg/dl (0.44-1.00) Glucose Level 98mg/dl (70-220) Calcium Level 8.8mg/dl (8.4-10.2) White Blood Count 7.310^3/ul (4.8-10.8) Red Blood Count 3.0410^6/ul (4.20-5.40) Mean Corpuscular Volume 91.8fl (82.0-101.0) Mean Corpuscular Hemoglobin 31.3pg (29.0-33.0) Mean Corpuscular Hemoglobin Concent 34.1g/dl (32.0-37.0) Red Cell Distribution Width 12.4% (11.5-14.5) Platelet Count 15091^3/UL (140-415) Mean Platelet Volume 9.3fl (7.4-10.4) Neutrophils % 58.4% (39.0-77.0) Lymphocytes % 31.6% (15.0-51.0) Monocytes % 7.6% (0.0-11.0) Eosinophils % 1.5% (0.0-7.0) Basophils % 0.6% (0.0-2.0) Nucleated Red Blood Cells % 0.0/100WBC (0.0-0.0) Neutrophils # 4.310^3/ul (1.6-7.5) Lymphocytes # 2.310^3/ul (0.8-2.9) Monocytes # 0.610^3/ul (0.3-0.9) Eosinophils # 0.110^3/ul (0.0-0.5) Basophils # 0.010^3/ul (0.0-0.1) Nucleated Red Blood Cells # 0.010^3/ul (0.0-0.0) Beta HCG, Quantitative 453.1mIU/ml JOSEPH GALVAN MD February 06, 2017 17:10
== END 2017-02-06 18:55 | disposition home or self-care (01) ==
LOC: FTE 20:26 → SDS 02-04 19:21 → MS2 02-04 19:21 → SDS 02-04 23:15
PROVIDERS: ADMIT Obstetrics & Gynecology; ATTEND Obstetrics & Gynecology
DX: O00.10 Tubal pregnancy without intrauterine pregnancy (principal)
CPT/HCPCS: 59151; 76801; 76817; 80048; 81001; 81003; 84702; 84703; 85014; 85018; 85025; 86900; 86901; 87086; 88305; 93971; 96360; 96361; G0378; J0690; J1170; J1200; J1885; J2175; J2250; J2710; J2765; J2795; J7030; J7121; 36415; 96374; J2405

== ENCOUNTER 2019-04-06 10:49 | Emergency (ER) | payer MEDICAID, OTHER ==
[~2019-04-06] VITALS: Ht 152.4 cm; Wt 54.9 kg
[2019-04-06 10:55] VITALS: Ht 152.4 cm; Wt 54.9 kg
[2019-04-06] MEDS ORDERED: SODIUM CHLORIDE 0.9% 1L BAG IV* STA (11:22)
[2019-04-06] MEDS ORDERED: morphine 4 MG/ML VIAL IV STA (12:09)
[2019-04-06] MEDS ORDERED: KETOROLAC 30 MG INJ IV STA (12:17)
[2019-04-06] MEDS ORDERED: ACETAMINOPHEN 500 MG TAB PO STA (12:55)
[2019-04-06] MEDS ORDERED: CEFTRIAXONE 1 GM/50 ML (PMX) 50 ML IVPB ONE (13:30)
[2019-04-06 13:50] VITALS: BP 102/56; PULSE 94; RESP 18
[2019-04-06] MEDS ORDERED: IBUP-1542 PO (13:54)
[2019-04-06] MEDS ORDERED: CEPH-443 PO (13:54)
[2019-04-06] MEDS ORDERED: ACET500C5 PO (13:55)
--- NOTE | 2019-04-06 13:56 | ERD ---
ER Documentation Chief Complaint Chief Complaint Pt with fevers/chills and AP since yesterday. HPI 33 year old presents with fever, chills, shaking, and abdominal pain since yesterday. She states that her abdominal pain is sharp and located at her lower abd quadrants and suprapubic region. She has felt nausea but denies vomiting, d iarrhea. She has taken Tylenol that reduces her fever for a period of time. She reports that she is currently on her period now. Her periods are normally regular. She reports frequent urination having to go every hour. She has a past med hx of an ectopic 1.5 yrs ago. She ate breakfast this morning and denies anorexia. ROS All systems reviewed and are negative except as per history of present illness. Medications Home Meds Active Scripts Acetaminophen* (Tylophen*) 500 Mg Capsule, 1 CAP PO Q6H PRN for PAIN AND OR ELEVATED TEMP, #20 CAP Prov:VINCENZOAVOSIANMARIE PA-C 04/06/19 Ibuprofen* (Motrin*) 600 Mg Tab, 600 MG PO Q8, #30 TAB Prov:ALTONOSIMARIE WERNER PA-C 04/06/19 Cephalexin* (Keflex*) 500 Mg Capsule, 500 MG PO QID for 7 Days, CAP Prov:MATAVOSIANMARIE PA-C 04/06/19 Allergies Allergies: Coded Allergies: No Known Allergy (Unverified , 02/04/17) PMhx/Soc History of Surgery: No Hx Neurological Disorder: No Hx Respiratory Disorders: No Hx Cardiac Disorders: No Hx Psychiatric Problems: No Hx Miscellaneous Medical Probl: No Hx Alcohol Use: No Hx Substance Use: No Hx Tobacco Use: No FmHx Family History: No diabetes Physical Exam Vitals Vital Signs Date Temp Pulse Resp B/P (MAP) Pulse Ox O2 O2 Flow FiO2 Time Delivery Rate 04/06/19 101.5 94 18 102/56 95 Room Air 13:50 (71) 04/06/19 101.4 13:07 04/06/19 101.4 13:06 04/06/19 104.4 113 18 125/80 96 10:55 (95) Physical Exam Const: acute distress, shaking Head: Atraumatic Eyes: Normal Conjunctiva, PERRLA ENT: Normal External Ears, Nose and Mouth. Throat: pink and moist Neck: Full range of motion. No meningismus. Resp: Clear to auscultation bilaterally Cardio: tachycardic, no murmurs Abd: soft, tenderness to the suprapubic region. no guarding, no rebound tenderness Skin: No petechiae or rashes, warm to touch Back: No midline or flank tenderness Ext: No cyanosis, or edema Neur: Awake and alert Psych: Normal Mood and Affect Result Diagram: 04/06/19 1131 04/06/19 1132 Results 24 hrs Laboratory Tests Test 04/06/19 11:21 04/06/19 11:31 04/06/19 11:32 04/06/19 12:10 POC Venous 1.4 mmol/L Lactate White Blood Count 6.0 10^3/ul Red Blood Count 3.89 10^6/ul Hemoglobin 12.0 g/dl Hematocrit 35.3 % Mean Corpuscular 90.7 fl Volume Mean Corpuscular 30.8 pg Hemoglobin Mean Corpuscular 34.0 g/dl Hemoglobin Concen t Red Cell 12.5 % Distribution Width Platelet Count 223 10^3/UL Mean Platelet 9.7 fl Volume Immature 0.200 % Granulocytes % Neutrophils % 93.3 % Lymphocytes % 5.2 % Monocytes % 0.7 % Eosinophils % 0.3 % Basophils % 0.3 % Nucleated Red 0.0 /100WBC Blood Cells % Immature 0.010 10^3/ul Granulocytes # Neutrophils # 5.6 10^3/ul Lymphocytes # 0.3 10^3/ul Monocytes # 0.0 10^3/ul Eosinophils # 0.0 10^3/ul Basophils # 0.0 10^3/ul Nucleated Red 0.0 10^3/ul Blood Cells # Prothrombin Time 13.5 Sec Prothrombin Time 1.1 Ratio INR International 1.02 Normalized Ratio Activated 30.3 Sec Partial Thrombopl ast Time Lactic Acid Level 1.5 mmol/L Sodium Level 139 mmol/L Potassium Level 4.0 mmol/L Chloride Level 104 mmol/L Carbon Dioxide 26 mmol/L Level Anion Gap 9 Blood Urea 14 mg/dl Nitrogen Creatinine 0.62 mg/dl Est Glomerular > 60 mL/min Filtrat Rate mL/min Glucose Level 108 mg/dl Calcium Level 9.3 mg/dl Total Bilirubin 0.6 mg/dl Direct Bilirubin 0.00 mg/dl Indirect 0.6 mg/dl Bilirubin Aspartate Amino 124 IU/L Transf (AST/SGOT) Alanine 112 IU/L Aminotransferase (ALT/SGPT) Alkaline 53 IU/L Phosphatase Troponin I < 0.012 ng/ml Total Protein 7.2 g/dl Albumin 4.2 g/dl Globulin 3.00 g/dl Albumin/Globulin 1.40 Ratio Urine Color YELLOW Urine Clarity CLEAR Urine pH 5.0 Urine Specific 1.013 Bentley Urine Ketones NEGATIVE mg/dL Urine Nitrite POSITIVE mg/dL Urine Bilirubin NEGATIVE mg/dL Urine NEGATIVE mg/dL Urobilinogen Urine Leukocyte NEGATIVE Linda/ul Esterase Urine Microscopic 1 /HPF RBC Urine Microscopic 15 /HPF WBC Urine Bacteria FEW /HPF Urine Mucus FEW /HPF Urine Hemoglobin 2+ mg/dL Urine Glucose NEGATIVE mg/dL Urine Total NEGATIVE mg/dl Protein Test 04/06/19 12:15 POC Beta HCG, NEGATIVE Qualitative Current Medications Medications Dose Sig/Cathleen Start Time Status Last (Trade) Ordered Route PRN Stop Time Admin Dose Reason Admin Sodium 1,650 ml BOLUS OVER 2 04/06/19 DC 04/06/19 Chloride HOURS STAT 11:22 04/06/19 11:36 (NS) IV* 11:26 Morphine 4 mg ONCE STAT 04/06/19 DC Sulfate IV 12:09 04/06/19 (morphine) 12:18 Ketorolac 30 mg ONCE STAT 04/06/19 DC 04/06/19 Tromethamine IV 12:17 04/06/19 12:27 (Toradol) 12:18 1,000 mg ONCE STAT 04/06/19 DC 04/06/19 Acetaminophen PO 12:55 04/06/19 13:06 (Tylenol 12:56 Tab) Ceftriaxone 50 ml @ ONCE ONCE 04/06/19 DC 04/06/19 Sodium 100 mls/hr IVPB 13:30 04/06/19 13:29 13:59 Procedures/MDM ED COURSE: The patient was stable throughout ED course. I kept the patient informed of laboratory and diagnostic imaging results throughout the ED course. EKG: Read by Dr. Phipps, attending physician. EKG shows sinus tachycardia rhythm at a rate of 104 bpm. No arrhythmias, acute ST elevations or T wave changes were noted. DIAGNOSTIC IMAGING: Read by radiologist. PROCEDURES: IV fluids MEDICATIONS GIVEN: IV fluids, Rocephen, tylenol, toradol Patient tolerated medication well with no adverse reactions. Patient reported improvement in pain. MEDICAL DECISION MAKING: Patient is a 33 year old female presenting with fever,chills, shaking, and abd pain x 1 day. She activated a sepsis workup. Lactate was 1.4. On physical exam, patient was shaking and warm to touch with an initial fever of 104. Patient was given IV fluids, and tylenol which helped her symptoms. Pt did not have an elevated white count. Pts urinalysis came back positive with nitrites. Pt was given IV Rocephen. Patients symptoms improved during the ED stay. Her fever reduced down to 101. Patient was diagnosed with a UTI and given outpt abx and strict return back to ED measures if symptoms worsen or persist. I have low suspicion for sepsis, pneumonia, ectopic , molar , spontaneous , pancreatitis, diverticulitis, cholecystitis. Her Vital signs were reviewed. Patients fever was lowering. Patient was not hypoxic. Patient was hemodynamically stable. Patient was told to follow up with primary care for further care and management. PRESCRIPTION: keflex, motrin, tylenol DISCHARGE: At this time, patient is stable for discharge and outpatient management. I have instructed the patient to follow-up with his/her primary care physician in 1-2 days. I have discussed with the patient the possibility of needing to see a specialist for further workup and imaging studies if symptoms persist. I have instructed the patient to promptly return to the ER for any new or worsening symptoms including increased pain, fever, nausea, vomiting, weakness or LOC. The patient expressed understanding of and agreement with this plan. All questions were answered. Home care instructions were provided. Disclaimer: Inadvertent spelling and grammatical errors are likely due to EHR/dictation software use and do not reflect on the overall quality of patient care. Also, please note that the electronic time recorded on this note does not necessarily reflect the actual time of the patient encounter. Departure Diagnosis: Primary Impression: Fever Fever type: unspecified Qualified Codes: R50.9 - Fever, unspecified Additional Impression: UTI (urinary tract infection) Urinary tract infection type: site unspecified Hematuria presence: with hematuria Qualified Codes: N39.0 - Urinary tract infection, site not specified; R31.9 - Hematuria, unspecified Condition: Fair Patient Instructions: Understanding Urinary Tract Infections (UTIs) Referrals: COMMUNITY CLINICS YOU HAVE RECEIVED A MEDICAL SCREENING EXAM AND THE RESULTS INDICATE THAT YOU DO NOT HAVE A CONDITION THAT REQUIRES URGENT TREATMENT IN THE EMERGENCY DEPARTMENT. FURTHER EVALUATION AND TREATMENT OF YOUR CONDITION CAN WAIT UNTIL YOU ARE SEEN IN YOUR DOCTORS OFFICE WITHIN THE NEXT 1-2 DAYS. IT IS YOUR RESPONSIBILITY TO MAKE AN APPOINTMENT FOR FOLOW-UP CARE. IF YOU HAVE A PRIMARY DOCTOR --you should call your primary doctor and schedule an appointment IF YOU DO NOT HAVE A PRIMARY DOCTOR YOU CAN CALL OUR PHYSICIAN REFERRAL HOTLINE AT IF YOU CAN NOT AFFORD TO SEE A PHYSICIAN YOU CAN CHOSE FROM THE FOLLOWING [facility] [address] [facility] [address] [facility] [address] [facility] [address] [facility] [address] [facility]. [facility] [address] [facility]. [facility] YOU HAVE RECEIVED A MEDICAL SCREENING EXAM AND THE RESULTS INDICATE THAT YOU DO NOT HAVE A CONDITION THAT REQUIRES URGENT TREATMENT IN THE EMERGENCY DEPARTMENT. FURTHER EVALUATION AND TREATMENT OF YOUR CONDITION CAN WAIT UNTIL YOU ARE SEEN IN YOUR DOCTORS OFFICE WITHIN THE NEXT 1-2 DAYS. IT IS YOUR RESPONSIBILITY TO MAKE AN APPOINTMENT FOR FOLOW-UP CARE. IF YOU HAVE A PRIMARY DOCTOR --you should call your primary doctor and schedule and appointment IF YOU DO NOT HAVE A PRIMARY DOCTOR YOU CAN CALL OUR PHYSICIAN REFERRAL HOTLINE AT . IF YOU CAN NOT AFFORD TO SEE A PHYSICIAN YOU CAN CHOSE FROM THE FOLLOWING [facility] INSTITUTIONS: [facility] [address] [place] [address] [facility] [address] [place] [address] [facility] [address] [place] [address] Additional Instructions: Call your primary care doctor TOMORROW for an appointment during the next 1-2 days.See the doctor sooner or return here if your condition worsens before your appointment time. MARIE TENA PA-C Apr 06, 2019 13:55
== END 2019-04-06 14:18 | disposition home or self-care (01) ==
LOC: FTE 10:49
DX: N39.0 Urinary tract infection, site not specified (principal)
CPT/HCPCS: 36415; 80053; 81001; 81025; 83605; 84484; 85025; 85610; 85730; 87040; 87086; 93005; 96365; 96366; 96375; J0696; J1885; J7030; Z7502; Z7610

== ENCOUNTER 2019-04-11 10:06 | Emergency (ER) | payer OTHER ==
[~2019-04-11] VITALS: Ht 152.4 cm; Wt 53.2 kg
[~2019-04-11 10:06] MED LIST: ACET500C5 PO; CEPH-443 PO; IBUP-1542 PO
[2019-04-11 10:10] VITALS: BP 134/71; PULSE 78; RESP 17; Ht 152.4 cm; Wt 53.2 kg
[2019-04-11] MEDS ORDERED: CIPR500T4 PO (10:43)
[2019-04-11] MEDS ORDERED: CIPR750T3 PO (10:43)
--- NOTE | 2019-04-11 10:55 | ERD ---
ER Documentation Chief Complaint Chief Complaint PT HERE FOR RECHECK, STATES SHE WAS CALLED TO COME BACK, RECENT DX OF UTI HPI 33-year-old female presents for follow-up appointment. States she was here on April 06 was diagnosed with a UTI for which she was given ceftriaxone and an Rx for Keflex. At that time urine and blood cultures were performed as well. States that she was called this morning and told to come back for repeat exam. She states she has been taking the Keflex as prescribed. Patient denies any dysuria, hematuria, fevers, chills, headaches, neck rigidity, photophobia, abdominal pain, nausea, vomiting, diarrhea. ROS All systems reviewed and are negative except as per history of present illness. Medications Home Meds Active Scripts Ciprofloxacin Hcl* (Ciprofloxacin Hcl*) 750 Mg Tablet, 750 MG PO BID for 7 Days, #14 TAB Prov:THANG NUNO 04/11/19 Acetaminophen* (Tylophen*) 500 Mg Capsule, 1 CAP PO Q6H PRN for PAIN AND OR ELEVATED TEMP, #20 CAP Prov:MARIE TENA PA-C 04/06/19 Ibuprofen* (Motrin*) 600 Mg Tab, 600 MG PO Q8, #30 TAB Prov:VINCENZOAVOSIMARIE WERNER PA-C 04/06/19 Cephalexin* (Keflex*) 500 Mg Capsule, 500 MG PO QID for 7 Days, CAP Prov:MATAVJOHNNAANMARIEC 04/06/19 Allergies Allergies: Coded Allergies: No Known Allergy (Unverified , 02/04/17) PMhx/Soc Medical and Surgical Hx: pt denies Medical Hx History of Surgery: Yes (ectopic 2016) Hx Neurological Disorder: No Hx Respiratory Disorders: No Hx Cardiac Disorders: No Hx Psychiatric Problems: No Hx Miscellaneous Medical Probl: No Hx Alcohol Use: No Hx Substance Use: No Hx Tobacco Use: No Smoking Status: Never smoker FmHx Family History: No diabetes, No coronary disease, No other Physical Exam Vitals Vital Signs Date Temp Pulse Resp B/P (MAP) Pulse Ox O2 O2 Flow FiO2 Time Delivery Rate 04/11/19 98.0 78 17 134/71 98 10:10 (92) Physical Exam Const: No acute distress Head: Atraumatic Eyes: Normal Conjunctiva ENT: Normal External Ears, Nose and Mouth. Neck: Full range of motion. No meningismus. Resp: Clear to auscultation bilaterally Cardio: Regular rate and rhythm, no murmurs Abd: Soft, non tender, non distended. Normal bowel sounds Skin: No petechiae or rashes Back: No midline or flank tenderness Ext: No cyanosis, or edema Neur: Awake and alert Psych: Normal Mood and Affect Procedures/MDM MDM: I discussed the case with supervising physician Dr. Dubois. He advised that since urine culture was positive for E. coli susceptible to Keflex so she will continue that treatment. Blood culture however showed some cephalosporin resistance so patient will be placed on 7-day course of ciprofloxacin. Dr. Dubois stated the patient is fit for discharge without repeat labs given the fact that she does not have any fevers or concerning symptoms. At this at this time I have low suspicion for sepsis, meningitis, pyelonephritis, or any other emergent condition. At this time, patient is stable for discharge and outpatient management. I have instructed the patient to follow-up with his/her primary care physician in 1-2 days. I have discussed with the patient the possibility of needing to see a specialist for further workup and imaging studies if symptoms persist. I have instructed the patient to promptly return to the ER for any new or worsening symptoms including but not limited to increased pain, fever, nausea, vomiting, weakness or LOC. The patient and/or family expressed understanding of and agreement with this plan. All questions were answered. Home care instructions were provided. DISCLAIMER: Inadvertent spelling and grammatical errors are likely due to EHR/dictation software use and do not reflect on the overall quality of patient care. Also, please note that the electronic time recorded on this note does not necessarily reflect the actual time of the patient encounter. Departure Diagnosis: Primary Impression: Bacteremia Condition: Stable Patient Instructions: Understanding Urinary Tract Infections (UTIs) Referrals: COMMUNITY CLINICS YOU HAVE RECEIVED A MEDICAL SCREENING EXAM AND THE RESULTS INDICATE THAT YOU DO NOT HAVE A CONDITION THAT REQUIRES URGENT TREATMENT IN THE EMERGENCY DEPARTMENT. FURTHER EVALUATION AND TREATMENT OF YOUR CONDITION CAN WAIT UNTIL YOU ARE SEEN IN YOUR DOCTORS OFFICE WITHIN THE NEXT 1-2 DAYS. IT IS YOUR RESPONSIBILITY TO MAKE AN APPOINTMENT FOR FOLOW-UP CARE. IF YOU HAVE A PRIMARY DOCTOR --you should call your primary doctor and schedule an appointment IF YOU DO NOT HAVE A PRIMARY DOCTOR YOU CAN CALL OUR PHYSICIAN REFERRAL HOTLINE AT IF YOU CAN NOT AFFORD TO SEE A PHYSICIAN YOU CAN CHOSE FROM THE FOLLOWING [facility] [address] [facility] [phone] [address] [facility]. [facility] [address] [facility] [address] [facility]. [facility] [phone] [address] [facility]. [facility]. [address] Additional Instructions: FOLLOW UP WITH YOUR PRIMARY CARE PHYSICIAN TOMORROW.Return to this facility if you are not improving as expected. THANG NUNO Apr 11, 2019 10:55
== END 2019-04-11 10:59 | disposition home or self-care (01) ==
LOC: FTE 10:06
DX: R78.81 Bacteremia (principal)
CPT/HCPCS: 99283